=== PATIENT | female | born 1970 | race Caucasian/White ===

== ENCOUNTER 2020-02-22 20:33 | Emergency (ER) | payer BC ==
[2020-02-22] MEDS ORDERED: Bacitracin Oint 1 GM U/D Packet TOP ONE (21:00)
[2020-02-22] MEDS ORDERED: Lidocaine 1% with EPINEPHrine 1:100,000 50 ML MDV SUBCUT ONE (21:00)
--- NOTE | 2020-02-22 21:05 | EDM.PDOC ---
ED HPI GENERAL MEDICAL PROBLEM - General Chief Complaint: Laceration Stated Complaint: FELL ON FIREPIT RING, HIT FACE Time Seen by Provider: 02/22/20 20:47 Source of Information: Reports: Patient History Limitations: Reports: No Limitations - History of Present Illness INITIAL COMMENTS - FREE TEXT/NARRATIVE: 49 yo female presents to ER with laceration to her nose and upper lip. She fell striking face on fire pit. No LOC. - Related Data Allergies Allergy/AdvReac Type Severity Reaction Status Date / Time No Known Allergies Allergy Verified 02/22/20 21:02 Home Meds: Home Meds Immun Glob G(IgG)/Gly/Iga Ov50 [Hyqvia Ig Cmpnt 20 gm/200 ml] 25 gm SQ WEEKLY 02/22/20 [History] Levothyroxine 125 mcg PO ACBREAKFAST 02/22/20 [History] ED ROS GENERAL - Review of Systems Review Of Systems: See Below Constitutional: Denies: Fever, Chills Respiratory: Denies: Shortness of Breath, Wheezing Cardiovascular: Denies: Chest Pain Skin: Reports: Wound ED EXAM, SKIN/RASH Exam: See Below Exam Limited By: No Limitations General Appearance: Alert, WD/WN, No Apparent Distress Head: Facial Swelling, Facial Tenderness, Other (1.75 cm laceration bridge of nose, moderate edema, avulsion lacertion to left upper lip) ED SKIN PROCEDURES - Laceration/Wound Repair Upper Face Appearance: Superficial, Subcutaneous Distal NVT: Neuro & Vascular Intact Anesthetic Type: Local Local Anesthesia - Lidocaine (Xylocaine): 1% with EPI Local Anesthetic Volume: 4cc Skin Prep: Chlorhexidine (Hibiciens), Saline, Sterile Drape Saline Irrigation (cc's): 500 Exploration/Debridement/Repair: Wound Explored, In a Bloodless Field, Explored to Base, Minimal Debridement Closed with: Sutures Lac/Wound length In cm: 3.7 (1.75 at nose bridge, 2 cm avulsion upper left lip) Suture Size: 6-0 # of Sutures: 9 (6 to nose laceration and 3 to avulsion upper lip) Suture Type: Interrupted, Simple Sterile Dressing Applied: Nurse Tetanus Status Addressed: Yes Course - Vital Signs Last Recorded V/S: Last Vital Signs Temp 35.4 C L 02/22/20 20:58 Pulse 81 02/22/20 20:58 Resp 16 02/22/20 20:58 BP 163/85 H 02/22/20 20:58 Pulse Ox 95 02/22/20 20:58 - Orders/Labs/Meds Orders: Active Orders 24 hr Category Date Time Status Vaccines to be Administered [RC] PER UNIT ROUTINE Care 02/22/20 21:39 Active Meds: Medications Discontinued Medications Generic Name Dose Route Start Last Admin Trade Name Anand PRN Reason Stop Dose Admin Bacitracin 1 dose 02/22/20 21:00 02/22/20 21:09 Bacitracin Oint 1 Gm TOP 02/22/20 21:01 1 dose ONETIME ONE Administration Diphtheria/Tetanus/Acell Pertussis 0.5 ml 02/22/20 21:39 02/22/20 21:45 Adacel IM 02/22/20 21:40 0.5 ml .ONCE ONE Administration Lidocaine/Epinephrine 5 ml 02/22/20 21:00 02/22/20 21:08 Xylocaine 1% With Epinephrine 1:100,000 SUBCUT 02/22/20 21:01 5 ml ONETIME ONE Administration Departure - Departure Time of Disposition: 22:02 Disposition: Home, Self-Care 01 Condition: Good Clinical Impression: Facial laceration Qualifiers: Encounter type: initial encounter Qualified Code(s): S01.81XA - Laceration without foreign body of other part of head, initial encounter - Discharge Information *PRESCRIPTION DRUG MONITORING PROGRAM REVIEWED*: Not Applicable *COPY OF PRESCRIPTION DRUG MONITORING REPORT IN PATIENT HEIDI: Not Applicable Instructions: Sutured Wound Care, [id number], VIS, Tetanus, Diphtheria, and Pertussis (Tdap) - CDC (09/02/2014) Referrals: PCP,None [Primary Care Provider] - Forms: ED Department Discharge Additional Instructions: Keflex 500 mg twice daily for 3 days observe for signs of infection: fire engine red, increase in pain, purulent drainage wound check in 3 days sutures removed in 7-9 days ice as much as possible over the next 3 days to reduce edema Sepsis Event Note (ED) - Evaluation Sepsis Screening Result: No Definite Risk - Focused Exam Vital Signs: Vital Signs Temp Pulse Resp BP Pulse Ox 02/22/20 20:58 35.4 C L 81 16 163/85 H 95 02/22/20 20:46 35.4 C L 81 16 163/85 H 95 - My Orders Last 24 Hours: My Active Orders 02/22/20 21:39 Vaccines to be Administered [RC] PER UNIT ROUTINE - Assessment/Plan Last 24 Hours: My Active Orders 02/22/20 21:39 Vaccines to be Administered [RC] PER UNIT ROUTINE
[2020-02-22] MEDS ORDERED: Diphtheria,Pertussis(Acell),Tetanus Vaccine 0.5 ML SDV IM ONE (21:39)
== END 2020-02-22 22:32 | disposition home or self-care (01) ==
LOC: JP.ED 20:33
DX: S01.21XA Laceration without foreign body of nose, initial encounter (principal); S01.511A Laceration without foreign body of lip, initial encounter; Z23 Encounter for immunization; Z79.899 Other long term (current) drug therapy; W22.8XXA Striking against or struck by other objects, initial encounter
CPT/HCPCS: 12013; 90471; 90715; 99282